=== PATIENT | male | born 1980 | race Caucasian/White ===

== ENCOUNTER 2017-10-24 14:28 | Emergency (ER) | payer OTHER ==
[~2017-10-24] VITALS: Ht 167.6 cm; Wt 108.9 kg
[2017-10-24] MEDS ORDERED: OSELB75 PO (14:47)
[2017-10-24] MEDS ORDERED: HYDROCODONE-AP1 EACH PO (14:49)
[2017-10-24] MEDS ORDERED: FLEXERIL PO (14:50)
[2017-10-24 14:59] VITALS: BP 156/98
== END 2017-10-24 15:00 | disposition home or self-care (01) ==
LOC: M.ERS 14:28
DX: J11.1 Influenza due to unidentified influenza virus with other respiratory manifestations (principal); Z88.2 Allergy status to sulfonamides